=== PATIENT | female | born 1970 | race Caucasian/White ===

== ENCOUNTER → 2017-03-09 | Outpatient (CLI) | payer SELFPAY ==
[~2017-03-09] MED LIST: FISH5CAP PO; IBUP200C10 PO; SEA KELP PO; VITA10006 PO; [UNRECOGNIZED DRUG - OTHER] PO; percocet PO
[2017-03-09 09:30] LABS: MEAN CORPUSCULAR HEMOGLOBIN 32.2 pg (27.0-33.0); MEAN CORPUSCULAR HGB CONC 33.1 g/dl (32.0-36.5); MEAN CORPUSCULAR VOLUME 97.5 fl (80.0-96.0); RED CELL DISTRIBUTION WIDTH 12.7 % (11.5-14.5); WHITE BLOOD COUNT 6.2 10^3/uL (4.0-10.0)
[2017-03-09 09:41] LABS: ALBUMIN 3.4 GM/DL (3.2-5.2); ALBUMIN/GLOBULIN RATIO 0.97 (1.00-1.93); ALKALINE PHOSPHATASE 52 U/L (45-117); ALT/SGPT 37 U/L (12-78); AST/SGOT 17 U/L (15-37); BILIRUBIN,DIRECT 0.2 MG/DL (0.0-0.2); BILIRUBIN,TOTAL 0.5 MG/DL (0.2-1.0); TOTAL PROTEIN 6.9 GM/DL (6.4-8.2)
[2017-03-10 08:52] LABS: CARCINOEMBRYONIC ANTIGEN < 0.5 NG/ML (<2.5)
[2017-03-10 09:19] LABS: CA 125 18.2 U/ML (<30.2)
== END ==
LOC: M LAB 08:16
DX: M89.9 Disorder of bone, unspecified (principal)

== ENCOUNTER → 2018-09-25 | Outpatient (CLI) | payer SELFPAY ==
[~2018-09-25] MED LIST changes: +GASTROGRAFIN SOLUTION 30ML (Q9963) As Ordered ONE; -IBUP200C10 PO; +IBUP200C25 PO; +ISOVUE-370 76% 100ML VIAL (Q9967) As Ordered ONE; +PROHANCE 279.3MG/ML 15ML VIAL (A9576) As Ordered ONE
--- NOTE | 2018-09-25 15:11 | REP ---
HISTORY: Incisional pain. Possible incisional hernia. COMPARISON: 11/20/2013 CONTRAST: 100 mL Isovue-370 The lung bases are clear and unchanged. The liver, gallbladder, spleen, pancreas, adrenal glands and kidneys are within normal limits and essentially unchanged. There is no free fluid or free air in the abdomen. There is no evidence of an intraabdominal mass or adenopathy. The abdominal aorta and paraaortic regions are within normal limits, status quo. There is evidence of s defect in the right parasagittal abdominal wall consistent with the clinical suspicion of an incisional hernia. Within the hernial sac there is both small and large bowel. There is no abnormal bowel wall thickening. There is no evidence of intestinal obstruction or intestinal ischemia. CT PELVIS: There is no free fluid or free air. There is pelvic sidewall adenopathy which is essentially unchanged. The pelvic bowel loops are within normal limits and essentially unchanged. Bone window technique throughout the exam shows the osseous structures to be essentially unchanged. Heavy calcific changes are again seen involving the sacroiliac joints. IMPRESSION: Suspected right-sided incisional hernia as described above which needs to be correlated clinically. Persistent pelvic sidewall adenopathy. Other findings as described above. Electronically Signed by Mike Reaves DO 09/25/2018 04:06 P
== END ==
LOC: M RAD 12:40
PROVIDERS: ATTEND Nurse Practitioner Family
DX: R10.84 Generalized abdominal pain (principal)
CPT/HCPCS: 74177; A9576; Q9963; Q9967

== ENCOUNTER → 2019-03-01 | Outpatient (CLI) | payer SELFPAY ==
[~2019-03-01] MED LIST changes: -PROHANCE 279.3MG/ML 15ML VIAL (A9576) As Ordered ONE
--- NOTE | 2019-03-02 06:46 | REP ---
CT ABDOMEN AND PELVIS WITH IV AND ORAL CONTRAST: TECHNIQUE: Axial contrast enhanced images from the lung bases to the pubic symphysis using 100 mL Isovue 370 intravenous contrast material with multiplanar reformations. Visualized lung bases are clear. No mass is seen in the liver. The gallbladder is grossly unremarkable. The spleen is normal in size with no definite intrinsic abnormality. The adrenals, pancreas and kidneys are unremarkable. There is no abdominal aortic aneurysm. There is no adenopathy. There is no free air or free fluid. Comparing to the prior study 09/25/2018, the right lateral inferior abdominal wall incisional hernia is again seen. However, at that location there is now a moderately dilated small bowel loop within the hernia, lateral to the cecum. There are surrounding streaky inflammatory changes. There is mild thickening of that small bowel loop. There may be a tiny amount of fluid focally surrounding that moderately dilated loop. The findings suggest that there may be some degree of strangulation of that small bowel loop within the hernia sac. There may be a partial small bowel obstruction at that point. Ingested oral contrast is seen in the more proximal jejunum and ileum but has not reached that level of the small bowel. Mild diffuse air and feces is seen throughout the colon. The stomach is not dilated. There is mild dilatation of distal small bowel loops in the right lower quadrant. No pelvic mass is seen. The urinary bladder appears unremarkable. IMPRESSION: Inferolateral right abdominal wall hernia again seen, as noted on the prior CT of 09/25/2018. Cecum is seen in the hernia and there is small bowel located lateral to the cecum. There is a moderately dilated fluid filled small bowel loop at that location with wall thickening and mild surrounding fluid and streaky inflammation. These findings suggest possible strangulation of the small bowel in the hernia sac. There may be partial small bowel obstruction as well with adjacent mild small bowel dilatation. Electronically Signed by Alex Wade MD 03/03/2019 05:40 P
== END ==
LOC: M RAD 15:02
PROVIDERS: ATTEND Nurse Practitioner Family
DX: R19.00 Intra-abdominal and pelvic swelling, mass and lump, unspecified site (principal)

== ENCOUNTER 2019-03-05 21:14 | Inpatient (IN) | payer SELFPAY ==
[~2019-03-05] VITALS: Ht 167.6 cm; Wt 92.6 kg
[~2019-03-05 21:14] MED LIST changes: -GASTROGRAFIN SOLUTION 30ML (Q9963) As Ordered ONE; -ISOVUE-370 76% 100ML VIAL (Q9967) As Ordered ONE
[2019-03-05 22:07] LABS: BASO % 0.4 % (0.0-1.0); EOS # 0.1 10^3/uL (0.0-0.5); EOS % 0.9 % (0.0-3.0); HEMATOCRIT 37.8 % (36.0-47.0); HEMOGLOBIN 12.9 g/dl (12.0-15.5); LYMPH # 1.1 10^3/uL (1.5-5.0); LYMPH % 16.1 % (24.0-44.0); MEAN CORPUSCULAR HEMOGLOBIN 32.1 pg (27.0-33.0); MEAN CORPUSCULAR HGB CONC 34.1 g/dl (32.0-36.5); MONO # 0.4 10^3/uL (0.0-0.8); MONO % 6.3 % (0.0-5.0); NEUTROPHILS # 5.2 10^3/uL (1.5-8.5); NEUTROPHILS % 76.2 % (36.0-66.0); PLATELET COUNT, AUTOMATED 220 10^3/uL (150-450); RED BLOOD COUNT 4.02 10^6/uL (4.00-5.40); WHITE BLOOD COUNT 6.8 10^3/uL (4.0-10.0)
[2019-03-05 22:40] LABS: ALBUMIN 3.8 GM/DL (3.2-5.2); ALT/SGPT 26 U/L (12-78); BILIRUBIN,DIRECT 0.1 MG/DL (0.0-0.2); BILIRUBIN,TOTAL 0.5 MG/DL (0.2-1.0); BLOOD UREA NITROGEN 16 MG/DL (7-18); CALCIUM LEVEL 9.2 MG/DL (8.5-10.1); CARBON DIOXIDE LEVEL 27 MEQ/L (21-32); CHLORIDE LEVEL 106 MEQ/L (98-107); GLOMERULAR FILTRATION RATE > 60.0 (>51); GLUCOSE, FASTING 116 MG/DL (70-100); LIPASE 137 U/L (73-393); POTASSIUM SERUM 4.1 MEQ/L (3.5-5.1); SODIUM LEVEL 142 MEQ/L (136-145); TOTAL PROTEIN 7.5 GM/DL (6.4-8.2)
[2019-03-05] MEDS ORDERED: ISOVUE-370 76% 100ML VIAL (Q9967) As Ordered ONE (22:47)
[2019-03-06] VITALS (7 sets, daily range): BP systolic 111–135; BP diastolic 71–76; O2SAT 95–96
--- NOTE | 2019-03-06 00:17 | REPVR ---
PROCEDURE INFORMATION: Exam: CT Abdomen and Pelvis With Contrast Exam date and time: 03/05/2019 10:26 PM Clinical history: 48 years old, female; Abdominal pain; Generalized; Additional info: Hernia TECHNIQUE: Imaging protocol: Computed tomography of the abdomen and pelvis with intravenous contrast. Radiation optimization: All CT scans at this facility use at least one of these dose optimization techniques: automated exposure control; mA and/or kV adjustment per patient size (includes targeted exams where dose is matched to clinical indication); or iterative reconstruction. Contrast material: ISO; Contrast volume: 100 ml; Contrast route: AC; COMPARISON: CT ABD PELVIS WITH CONTRAST 03/01/2019 4:[address] ABD PELVIS WITH CONTRAST 09/25/2018 2:43:18 PM FINDINGS: Lungs: There is mild dependent atelectasis in both lower lobes. Heart: No cardiomegaly. No pericardial effusion. Liver: The attenuation of the liver is more than 40 Hounsfield units lower in attenuation compared to the spleen, which is compatible with fatty liver infiltration. No liver lesion is seen. The contour of the liver is smooth. The liver is enlarged and measures 20.5 cm in craniocaudal dimension at the level of the right midclavicular line. Gallbladder and bile ducts: No calcified gallstones are seen. No gallbladder wall thickening, pericholecystic fluid, or pericholecystic inflammatory changes are identified. No dilation of the intrahepatic or extrahepatic bile ducts is noted. Pancreas: Normal. No ductal dilation. Spleen: Normal. No splenomegaly. Incidental note is made of 2 small accessory spleens. Adrenals: Normal. No mass. Kidneys and ureters: The kidneys are normal in appearance. No renal lesion is identified. No calculi are seen in the kidneys or ureters. There is no hydronephrosis or hydroureter. There are no wedge-shaped areas of low attenuation in the kidneys to suggest pyelonephritis. There is no renal abscess or perinephric fluid collection. Stomach and bowel: There is colonic diverticulosis without evidence for diverticulitis. There is no evidence for a bowel obstruction, colitis, pneumatosis intestinalis, intussusception, volvulus, or perforated viscus. Appendix: Normal. No evidence for appendicitis. Intraperitoneal space: Unremarkable. No fluid collection. No free air. Retroperitoneal space: Unremarkable. No fluid collection. No mass. Vasculature: The abdominal aorta is patent, normal in caliber, and there is no dissection. The renal arteries, celiac artery, superior mesenteric artery, inferior mesenteric artery, iliac arteries, and common femoral arteries are patent. The portal veins, splenic vein, and renal veins are patent. Lymph nodes: Normal. No enlarged lymph nodes. Bladder: Unremarkable. No calculi or masses are noted in the bladder. Reproductive: The uterus is anterverted and unremarkable. The ovaries are unremarkable. Bones/joints: The imaged bony structures are intact. There is no suspicious osteolytic or osteoblastic lesion. Incidental note is made of bone islands in the L5 vertebral body and left iliac bone, which are unchanged compared to the prior CTs on 03/01/2019 and 09/25/2018. There is sclerosis on both sides of the sacroiliac joints that is similar in appearance compared to the prior CTs on 03/01/2019 and 09/25/2018, and may be secondary to sacroiliitis or chronic stress related changes. Soft tissues: There is a right inferolateral abdominal wall hernia that contains a 2 cm x 4.6 cm x 10.9 cm rim enhancing fluid collection, which is compatible with an abscess. No loose bowel are noted in the hernia sac. The size of the hernia is similar in appearance compared to the prior CT on 03/01/2019. IMPRESSION: 1. Right inferolateral abdominal wall hernia that contains a 2 cm x 4.6 cm x 10.9 cm abscess. 2. Colonic diverticulosis without evidence for diverticulitis. 3. Enlarged, fatty liver. Electronically signed by: Joao Watson On 03/06/2019 00:16:25 AM
[2019-03-06] MEDS ORDERED: ACETAMINOPHEN TAB 650MG DOSE (2X325MG) PO PRN ×2 (00:45→10:00)
[2019-03-06 02:42] LABS: APPEARANCE, URINE CLEAR (CLEAR); BACTERIA, URINE AUTO NEGATIVE (NEGATIVE); BILIRUBIN, URINE AUTO NEGATIVE (NEGATIVE); BLOOD, URINE BLOOD NEGATIVE (NEGATIVE); COLOR, URINE STRAW (YELLOW); GLUCOSE, URINE (UA) AUTO NEGATIVE (NEGATIVE); KETONE, URINE AUTO TRACE mg/dL (NEGATIVE); LEUKOCYTE ESTERASE, URINE AUTO NEGATIVE (NEGATIVE); NITRITE, URINE AUTO NEGATIVE (NEGATIVE); PROTEIN, URINE AUTO NEGATIVE (NEGATIVE); RBC, URINE AUTO 2 /HPF (0-3); SPECIFIC GRAVITY URINE AUTO 1.029 (1.002-1.035); SQUAMOUS EPITHELIAL CELL UR AU 0 /HPF (0-6); UROBILINOGEN, URINE AUTO 0.2 mg/dL (0.0-2.0); WBC, URINE AUTO 0 /HPF (0-3)
[2019-03-06] MEDS ORDERED: NS 1,000 ML IV SCH (03:00)
--- NOTE | 2019-03-06 03:45 | HPEPDOC ---
General Date of Admission Mar 05, 2019 at 21:15 Date of Service: Mar 06, 2019 Attending Physician: HENRY HARO MD Chief Complaint The patient is a 48-year-old female admitted with a reason for visit abdominal pain secondary to abscess on abdominal wall hernia. Source: Patient, Family, RN/MD Associated Symptoms: Headaches, Loss of appetite, Malaise, Other (abdominal pain and bloating, Indigestion) History of Present Illness 48-year-old Mu-[employer]m female arrives at [facility] ED with her and another male perioperative educator with complaints of headache, indigestion, bloating and abdominal pain that worsens with movement. She has significant medical history of GERD, headaches, abdominal hernia, iron deficiency anemia, and hypothyr oidism, not currently on medication. She denies fever, nausea, vomiting, diarrhea, chest pain, palpitations, and shortness of breath. Her blood pressure is elevated on arrival Systolic blood pressure 185/89 and 2114 and is now 123/59, at 2303 with IV fluid resuscitation.She had hernia repair surgery December 17, 2018, on Monday, FebruaryMar 01, she had CT Abdominal /Pelvis completed due to palpable mass in right lower quadrant of pelvis. However, she did not know this information as the clinic could not reach her. and today the [facility] department located her and informed her to come in for more testing for Small Bowel Obstruction. Normal saline, sepsis screen is negative. Afebrile, WBC 6.8. Patient's currently taking on medications vitamin C thousand milligrams daily, fish all 1200 mg capsule daily, ibuprofen 200 mg daily, Taraxacum Officinale (dandelion root) 600 mg 1 daily, Percocet 1-2 tabs by mouth daily every 4 hours as needed, and sea kelp 1 tablet by mouth daily. Due to patient's CT Scan results, current complaint, and recommendation that she be admitted by and undergo IR procedure to drain abdominal abscess. She will be admitted to observation unit under hospitalist services for ongoing evaluation. Home Medications No Active Prescriptions or Reported Meds Allergies Coded Allergies: No Known Allergies (Unverified , 11/06/13) Past Medical History Medical History See HPI Surgical History Cyst removed from lip, Hernia repair, and tumor removed Family History Significant Family History: No pertinent family hx Social History * Smoker: Denies Alcohol: Denies Drugs: denies Psychosocial History: No pertinent psych hx, Conrado SI and HI A-FIB/CHADSVASC A-FIB History Current/History of A-Fib/PAF?: No Review of Systems Constitutional: Reports: Fatigue Eyes: Reports: Pain ENT: Reports: Head Aches; Denies: Ear Pain, Dysphagia, Sinus Congestion, Post Nasal Drip, Sore Throat, Epistaxis, Other Symptoms Skin: Denies: Rash, Lesions, Jaundice, Bruising, Itching, Dry, Breakdown, Nail Changes, Other Pulmonary: Denies: Dyspnea, Cough, Pleuritic Chest Pain, Other Symptoms Cardiovascular: Denies: Chest Pain, Palpitations, Orthopnea, Paroxysmal Noc. Dyspnea, Edema, Lt Headedness, Other Symptoms Gastrointestinal: Reports: Abdominal Pain, Other Symptoms (indigestion off and on, abdominal bloating) Genitourinary: Denies: Dysuria, Frequency, Incontinence, Hematuria, Retention, Other Symptoms Hematologic: Denies: Bruising, Bleeding Excessively, Petecchia, Purpura, Enlarged Lymph Nodes, Other Hematologic Endocrine: Denies: Polydipsia, Polyphagia, Polyuria, Heat Intolerance, Cold Intolerance, Other Endocrine Sx Musculoskeletal: Denies: Neck Pain, Back Pain, Shoulder Pain, Arm Pain, Hand Pain, Leg Pain, Foot Pain, Joint Pain, Muscle Pain, Spasms, Other Symptoms Neurological: Denies: Weakness, Numbness, Incoordination, Change in speech, Confusion, Seizures, Other Symptoms Psych: Reports: Mood Normal; Denies: Anxiety, Depression, Memory Issues, Thoughts of Self Harm, Anger, Thoughts of Harming Other, Other Psych Physical Examination General Exam: Positive: Alert, Cooperative, Mild Distress Eye Exam: Positive: PERRLA, Conjunctiva & lids normal, EOMI ENT Exam: Positive: Atraumatic, Mucous membr. moist/pink, Pharynx Normal, Tongue Midline, Nares Patent, Ext Auditory Canal Nml, Pinna Normal Neck Exam: Positive: Supple, +2 carotid pulse wo bruit Chest Exam: Positive: Clear to auscultation, Normal air movement, Rales Heart Exam: Positive: Normal S1, Normal S2 Telemetry: Positive: No significant arrhythmia Abdomen Exam: Positive: Normal bowel sounds, Soft, Tenderness (Epigastric and RLLQ to palpation) Extremity Exam: Positive: Normal pulses Skin Exam: Positive: Nl turgor and temperature Neuro Exam: Positive: Normal Gait, Normal Speech, Strength at 5/5 X4 ext, Cranial Nerves 3-12 NL Psych Exam: Positive: Mental status NL, Mood NL, Oriented x 3 Vital Signs Vital Signs Date Time Temp Pulse Resp B/P (MAP) Pulse Ox O2 Delivery O2 Flow Rate FiO2 03/05/19 23:33 77 18 98 Room Air 03/05/19 23:03 123/59 (80) 03/05/19 21:14 97.0 Laboratory Data Labs 24H Laboratory Tests 2 03/05/19 21:59: Immature Granulocyte % (Auto) 0.1, White Blood Count 6.8, Red Blood Count 4.02, Hemoglobin 12.9, Hematocrit 37.8, Mean Corpuscular Volume 94.0, Mean Corpuscular Hemoglobin 32.1, Mean Corpuscular Hemoglobin Concent 34.1, Red Cell Distribution Width 12.5, Platelet Count 220, Neutrophils (%) (Auto) 76.2H, Lymphocytes (%) (Auto) 16.1L, Monocytes (%) (Auto) 6.3H, Eosinophils (%) (Auto) 0.9, Basophils (%) (Auto) 0.4, Neutrophils # (Auto) 5.2, Lymphocytes # (Auto) 1.1L, Monocytes # (Auto) 0.4, Eosinophils # (Auto) 0.1, Basophils # (Auto) 0.0, Nucleated Red Blood Cells % (auto) 0.0, Anion Gap 9, Glomerular Filtration Rate > 60.0, Calcium Level 9.2, Aspartate Amino Transf (AST/SGOT) 18, Alanine Aminotransferase (ALT/SGPT) 26, Alkaline Phosphatase 78, Total Bilirubin 0.5, Direct Bilirubin 0.1, Total Protein 7.5, Albumin 3.8, Albumin/Globulin Ratio 1.03, Lipase 137 CBC/BMP Laboratory Tests 03/05/19 21:59 Red Blood Count 4.02, Mean Corpuscular Volume 94.0, Mean Corpuscular Hemoglobin 32.1, Mean Corpuscular Hemoglobin Concent 34.1, Red Cell Distribution Width 12.5, Neutrophils (%) (Auto) 76.2 H, Lymphocytes (%) (Auto) 16.1 L, Monocytes (%) (Auto) 6.3 H, Eosinophils (%) (Auto) 0.9, Basophils (%) (Auto) 0.4, Neutrophils # (Auto) 5.2, Lymphocytes # (Auto) 1.1 L, Monocytes # (Auto) 0.4, Eosinophils # (Auto) 0.1, Basophils # (Auto) 0.0 Assessment/Plan 48-year-old Mu-[employer]m female arrives at [facility] ED with her and another male perioperative educator with complaints of headache, indigestion, bloating and abdominal pain that worsens with movement. She has significant medical history of GERD, headaches, abdominal hernia, iron deficiency anemia, and hypothyroidism, not currently on medication. She denies fever, nausea, vomiting, diarrhea, chest pain, palpitations, and shortness of breath. She is here for repeat CT Abdomen/Pelvis with Contrast to evaluate for Small Bowel Obstruction as she is having worsening abdominal pain with movement with abdominal distention. Abdominal pain secondary to Right Inferolateral Abdominal Wall Hernia w/Abscess-Acute Plan General Surgery Consult-Dr. Denson (ED physician Dr. Polanco spoke w concerning imaging). Informed Dr. Denson patient is NPO in OBS unit. NO ANTIBIOTICS PER Recommendations from Dr. Denson. IVF Normal Saline at 100 mls/hr Pulse oximetry on room air. Medication:Acetaminophen 650 mg by mouth every 6 hours as needed pain 1-3 or fever; Percocet 7.5/325 mg by mouth one every 4 hours as needed for pain 4-10. Initiate bowel program: MOM; Colace 100 mg po BID Zofran 4 mg IV every 6 hours as needed for nausea, vomiting, Check labs: CMP, hemoglobin A1c due to abnormal fasting glucose of the 116, Urinalysis reflex to culture if positive, Procalcitonin Elevated blood pressure without Diagnosis hypertensionacute EKG No telemetry at this time. Negative for cardiac history. Will monitor blood pressure every 4 hours Hold home med, ibuprofen 200 mg daily as this could be the cause of her high blood pressure Continue taking fish oil 1200 Milligrams Capsule Daily, Hold until after IR Is Completed Diverticulosis (Found on CT Abdomen/Pelvis)-Acute Food/Nutrition education Fatty Liver- (Found on CT Abdomen/Pelvis)- Acute Limit amount of Tylenol intake Iron Deficiency Anemia- Check labs: Fe, Iron uptake, Binding, CBC GERD-chronic Initiate Protonix DR 40 mg IV daily until IR procedure then 40 mg by mouth daily, Mylanta prn Hold home medication: Dandeloin Root (Taraxacum Officinale Exr & Andre 520 mg daily). Hypothyroidismchronic Check TSH, T4, free, fasting lipid panel Sea Kelp 1 tab daily (unknown strength) Prognosis: Good DVT Prophylaxis: SCD's bilateral LE alternating with COMFORT's. Hold Heparin 5000 IU''s SC TID until after IR drainage of Abdominal Wall Abscess Discharge: Pending Plan / VTE VTE Prophylaxis Ordered?: Yes VTE Exclusion Mechanical Proph: Jhonny Lower Ex DVT VTE Exclusion Pharmacological: Other (Abdominal Abscess drain in AM under IR) Plan IVF: Initiate Diet: Make NPO Activity: Bedrest Therapy: PT Medications: Change to IV Respiratory: Pulse Ox on Room Air Diagnostics: Check Labs, Repeat Labs in AM, CT, EKG Anticipated Discharge: Home KAYKAY SNEED Mar 06, 2019 00:54
[2019-03-06] MEDS: NS 1,000 ML IV SCH ×2 (04:03→14:06)
[2019-03-06] MEDS ORDERED: ONDANSETRON 4MG/2ML VIAL (J2405) IV PRN (05:45)
[2019-03-06] MEDS ORDERED: ONDANSETRON 4MG/2ML VIAL (J2405) IV SCH (06:00)
[2019-03-06 06:14] LABS: BASO % 0.4 % (0.0-1.0); EOS # 0.1 10^3/uL (0.0-0.5); EOS % 1.8 % (0.0-3.0); HEMATOCRIT 37.8 % (36.0-47.0); HEMOGLOBIN 12.7 g/dl (12.0-15.5); LYMPH # 1.2 10^3/uL (1.5-5.0); LYMPH % 22.6 % (24.0-44.0); MEAN CORPUSCULAR HEMOGLOBIN 31.9 pg (27.0-33.0); MEAN CORPUSCULAR HGB CONC 33.6 g/dl (32.0-36.5); MONO # 0.4 10^3/uL (0.0-0.8); MONO % 8.2 % (0.0-5.0); NEUTROPHILS # 3.4 10^3/uL (1.5-8.5); NEUTROPHILS % 66.8 % (36.0-66.0); PLATELET COUNT, AUTOMATED 220 10^3/uL (150-450); RED BLOOD COUNT 3.98 10^6/uL (4.00-5.40); WHITE BLOOD COUNT 5.1 10^3/uL (4.0-10.0)
[2019-03-06 06:25] LABS: INR 1.06; PROTHROMBIN TIME 13.5 SECONDS (11.8-14.0)
[2019-03-06 06:44] LABS: HEMOGLOBIN A1c 5.7 %
[2019-03-06 06:57] LABS: ALBUMIN 3.3 GM/DL (3.2-5.2); ALT/SGPT 23 U/L (12-78); BILIRUBIN,TOTAL 0.5 MG/DL (0.2-1.0); BLOOD UREA NITROGEN 11 MG/DL (7-18); CALCIUM LEVEL 8.7 MG/DL (8.5-10.1); CARBON DIOXIDE LEVEL 27 MEQ/L (21-32); CHLORIDE LEVEL 106 MEQ/L (98-107); CHOLESTEROL LEVEL 146 MG/DL (<200); CHOLESTEROL RISK RATIO 2.979 (<5); CREATININE FOR GFR 0.61 MG/DL (0.55-1.30); FREE T4 0.85 NG/DL (0.76-1.46); GLOMERULAR FILTRATION RATE > 60.0 (>51); GLUCOSE, FASTING 86 MG/DL (70-100); HDL CHOLESTEROL 49 MG/DL (>40); LDL CHOLESTEROL 79 MG/DL (<100); NON-HDL-C 97 MG/DL; POTASSIUM SERUM 3.7 MEQ/L (3.5-5.1); SODIUM LEVEL 141 MEQ/L (136-145); TOTAL PROTEIN 7.1 GM/DL (6.4-8.2); TRIGLYCERIDES LEVEL 91 MG/DL (<150)
[2019-03-06] MEDS: PIPERACILLIN/TAZOBACTAM SOD 3.375 GM in D5W MINI-BAG PLUS 50 ML IV SCH ×2 (08:53→14:06)
[2019-03-06] MEDS: DOCUSATE SODIUM 100 MG CAP PO SCH ×2 (08:54→20:42)
[2019-03-06] MEDS ORDERED: MAALOX 30 ML SUSP *UDC PO PRN ×2 (09:00→11:00)
[2019-03-06] MEDS ORDERED: MOM 30ML SUSPENSION UDC PO PRN ×2 (09:00→10:00)
[2019-03-06] MEDS ORDERED: DOCUSATE SODIUM 100 MG CAP PO SCH (09:00)
--- NOTE | 2019-03-06 12:14 | IPNPDOC ---
Text Note Date of Service The patient was seen on 03/06/19. NOTE Subjective: Patient is a 48-year-old Nathan female with a PMHx of GERD, headaches, abdominal hernia, iron deficiency anemia, and hypothyroidism who presented to [facility] ER after she was brought in for an abnormal CT scan. Patient had a CT scan completed as an outpatient, results suggested possibility of abscess collection. Primary care provider had difficulty contacting patient and had sent the police car out to evaluate. Patient was brought into the emergency room where she received subsequent imaging. . She was then admitted to the hospitalist service for further evaluation and treatment. Surgery was called on consultation. Patient was seen and examined at the bedside. Patient reports that she is not experiencing abdominal pain, no nausea, vomiting or discomfort with urination. She reports normal bowel movements. Objective: Vitals (See below) General: Lying in bed, no acute distress, comfortable, AAOx3 HEENT: NC, AT CVS: RRR, +S1S2 Lungs: Fair air entry b/l, -w/r/r Abdomen: Soft, ND, NT, palpable defined mass can be felt in the right lower quadrant Extremities: - Edema, - Calf tenderness Assessment and plan: Abdominal pain at RLQ - possibly 2/2 mass, possibly 2/2 chronic seroma, possibly 2/2 abscess, possibly 2/2 incarcerated hernia - Clinically, patient reports that she does not experience any abdominal pain. Denies any nausea, vomiting - Patient remains hemodynamically stable and afebrile - No leukocytosis - CT abdomen / pelvis 03/05: 1. Right inferolateral abdominal wall hernia that contains a 2 cm x 4.6 cm x 10.9 cm abscess. 2. Colonic diverticulosis without evidence for diverticulitis. 3. Enlarged, fatty liver. - c/w IV fluid hydration - Will start Zosyn for intra-abdominal coverage of infection - Discussed with Dr. Denson, General surgery, and Dr. Wade, Interventional radiology - patient will be evaluated by general surgery; IR is currently being deferred because of the possibility of this being of bowel loop Headaches - c/w Tylenol PRN Iron deficiency anemia - No evidence of anemia Hypothyroidism - TSH elevated; Free T4 normal - Will continue with current outpatient regimen; will differ to outpatient provider - Patient currently does not take any medications DVT prophylaxis - c/w TEDs/Sequentials VS,Fishbone, I+O VS, Fishbone, I+O Laboratory Tests 03/05/19 21:59 Red Blood Count 4.02, Mean Corpuscular Volume 94.0, Mean Corpuscular Hemoglobin 32.1, Mean Corpuscular Hemoglobin Concent 34.1, Red Cell Distribution Width 12.5, Neutrophils (%) (Auto) 76.2 H, Lymphocytes (%) (Auto) 16.1 L, Monocytes (% ) (Auto) 6.3 H, Eosinophils (%) (Auto) 0.9, Basophils (%) (Auto) 0.4, Neutrophils # (Auto) 5.2, Lymphocytes # (Auto) 1.1 L, Monocytes # (Auto) 0.4, Eosinophils # (Auto) 0.1, Basophils # (Auto) 0.0 03/06/19 05:32 Red Blood Count 3.98 L, Mean Corpuscular Volume 95.0, Mean Corpuscular Hemoglobin 31.9, Mean Corpuscular Hemoglobin Concent 33.6, Red Cell Distribution Width 12.5, Neutrophils (%) (Auto) 66.8 H, Lymphocytes (%) (Auto) 22.6 L, Monocytes (%) (Auto) 8.2 H, Eosinophils (%) (Auto) 1.8, Basophils (%) (Auto) 0.4, Neutrophils # (Auto) 3.4, Lymphocytes # (Auto) 1.2 L, Monocytes # (Auto) 0.4, Eosinophils # (Auto) 0.1, Basophils # (Auto) 0.0, Calcium Level 8.7, Aspartate Amino Transf (AST/SGOT) 14, Alanine Aminotransferase (ALT/SGPT) 23, Alkaline Phosphatase 69, Total Bilirubin 0.5, Triglycerides Level 91, LDL Cholesterol 79, Total Protein 7.1, Albumin 3.3 Vital Signs Date Time Temp Pulse Resp B/P (MAP) Pulse Ox O2 Delivery O2 Flow Rate FiO2 03/06/19 09:00 97.9 72 16 128/74 (92) 97 03/06/19 03:58 Room Air I&O- Last 24 Hours up to 6 AM 03/06/19 06:00 Intake Total 0 ml Output Total 400 ml Balance -400 ml BERNADETTE JOSE MD Mar 06, 2019 12:14
[2019-03-07] MEDS: NS 1,000 ML IV SCH ×2 (01:00→10:13)
[2019-03-07 06:00] VITALS: BP 126/71
[2019-03-07 06:40] LABS: HEMOGLOBIN 13.4 g/dl (12.0-15.5); MEAN CORPUSCULAR HGB CONC 33.5 g/dl (32.0-36.5); MEAN CORPUSCULAR VOLUME 95.5 fl (80.0-96.0); PLATELET COUNT, AUTOMATED 216 10^3/uL (150-450); RED BLOOD COUNT 4.19 10^6/uL (4.00-5.40); WHITE BLOOD COUNT 5.1 10^3/uL (4.0-10.0)
[2019-03-07 07:04] LABS: ALBUMIN 3.4 GM/DL (3.2-5.2); ALT/SGPT 25 U/L (12-78); BILIRUBIN,TOTAL 0.6 MG/DL (0.2-1.0); BLOOD UREA NITROGEN 9 MG/DL (7-18); CALCIUM LEVEL 8.9 MG/DL (8.5-10.1); CARBON DIOXIDE LEVEL 28 MEQ/L (21-32); CHLORIDE LEVEL 109 MEQ/L (98-107); CREATININE FOR GFR 0.71 MG/DL (0.55-1.30); GLOMERULAR FILTRATION RATE > 60.0 (>51); GLUCOSE, FASTING 98 MG/DL (70-100); POTASSIUM SERUM 3.9 MEQ/L (3.5-5.1); SODIUM LEVEL 141 MEQ/L (136-145); TOTAL PROTEIN 7.2 GM/DL (6.4-8.2)
--- NOTE | 2019-03-07 07:51 | CR.PDOC ---
General Surgery Consultation Date of Consultation 03/06/19 History and Physical CONSULT REPORT FOR: Igor Garza MD (hospitalist service) REASON FOR CONSULTATION: right lower quadrant bulging ?hernia, recurrence or abscess HISTORY OF PRESENT ILLNESS: PAST MEDICAL HISTORY: 1. . PAST SURGICAL HISTORY: INCLUDES: 1. . PREVIOUS ANESTHESIA REACTIONS: ALLERGIES: Please see below. FAMILY HISTORY: . HOME MEDICATIONS: Please see below. REVIEW OF SYSTEMS: GENERAL: [Denies chills, reports weight gain, reports feeling febrile yesterday]. HEENT: [Denies blurred vision and double vision. Denies ear symptoms. Denies hoarseness]. NECK: Denies any neck pain]. CARDIOVASCULAR: [Denies chest pain and palpitations]. MUSCULOSKELETAL: [Denies arthralgias, back pain and thrombophlebitis]. SKIN: [Denies rash]. NEUROLOGIC: [Denies headache, stroke and transient ischemic attack]. PSYCHIATRIC: [Denies anxiety and depression]. ENDOCRINE: [Denies thyroid disease]. HEMATOLOGY/ONCOLOGY: [Denies bleeding or clotting disorder]. HEART: [Denies any chest pains, palpitations, paroxysmal dyspnea, orthopnea]. PULMONARY: [Denies chronic cough, dyspnea and wheezing]. GASTROINTESTINAL: [Denies rectal bleeding, family history of colon cancer, constipation, diarrhea, dysphagia, heartburn and jaundice]. GENITOURINARY: [Denies dysuria, frequency, hematuria and nocturia]. ENDOCRINE: [Denies polydipsia, polyphagia, polyuria, heat or cold intolerance]. INFECTIOUS: [Denies any recent upper respiratory tract infection, UTI, need for use of antibiotics]. NUTRITION: [Reports good appetite]. PHYSICAL EXAMINATION: VITALS SIGNS: Please see below. GENERAL APPEARANCE:[Patient seen, laying in bed, awake, alert, and oriented. Comfortable, in no acute distress]. SKIN: [Warm and moist]. HEENT: [Normocephalic, atraumatic. [place] palpebral conjunctiva, anicteric sclerae. Lips and mucosa appear moist]. NECK: [Supple, no thyromegaly. No obvious jugular venous distention]. LUNGS: [Clear to auscultation bilaterally. No wheezing appreciated]. HEART: [No chest wall abnormalities. Regular rate and rhythm with no murmurs appreciated]. ABDOMEN: Abdomen is , soft, . [No hepatosplenomegaly. No umbilical or groin herniations, nondistended. No noticeable rebound or guarding. No grimacing with palpation. No rebound tenderness. No masses appreciated]. EXTREMITIES: [Extremities have no deformities. No edema identified] ANCILLARIES: . LABORATORY DATA: Please see below. 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 I reassured them from the CT that was done that this does not seem to be so. She had a laparoscopic repair of said hernia in December 2018 at [facility] with a large piece of mesh. I presumed was placed as Intraperitoneal Onlay Placement (IPOM) I do not have available the operative reports at this time. I suspect the fluid collection seen on CT is a postoperative seroma. This was called as possible abscess by the online radiologist who read the CT last night. She is not reporting any fevers, chills, systemic signs of infection or inflammation. The area does not have any localized signs of inflammation or infection and I could manipulate the fluctuant bulging without any undue discomfort from the patient. I spoke to Dr. Wade regarding the 2 different CTs done 4 days apart and the different interpretations on the CT images. He was not aware that the patient had a prior hernia repair in between the images in september and mar 01 that he compared and the bowel contrast did not illuminate the portion of the bowel close to the hernia so he concluded that the fluid collection in the prior hernia most likely is a strangulated piece of bowel. After onferring with him, we have decided that an US maybe able to distinguish plain fluid and bowel so we will do that. If it is, I recommend having the seroma aspirated (no drains place). If this is not purulent looking, then she can go home and follow up with her surgeon in [place] for further management of this. Vital Signs Vital Signs Date Time Temp Pulse Resp B/P (MAP) Pulse Ox O2 Delivery O2 Flow Rate FiO2 03/07/19 06:00 97.0 62 18 126/71 (89) 100 03/06/19 16:31 Room Air I&Os I&O- Last 24 Hours up to 6 AM 03/07/19 06:00 Intake Total 2650 ml Output Total 500 ml Balance 2150 ml Laboratory Data Labs 24H Laboratory Tests 2 03/07/19 06:16: Nucleated Red Blood Cells % (auto) 0.0, Anion Gap 4L, Glomerular Filtration Rate > 60.0, Blood Urea Nitrogen 9, Creatinine 0.71, Sodium Level 141, Potassium Level 3.9, Chloride Level 109H, Carbon Dioxide Level 28, Calcium Level 8.9, Aspartate Amino Transf (AST/SGOT) 14, Alanine Aminotransferase (ALT/SGPT) 25, Alkaline Phosphatase 74, Total Bilirubin 0.6, Total Protein 7.2, Albumin 3.4, Albumin/Globulin Ratio 0.89L CBC/BMP Laboratory Tests 03/07/19 06:16 Red Blood Count 4.19, Mean Corpuscular Volume 95.5, Mean Corpuscular Hemoglobin 32.0, Mean Corpuscular Hemoglobin Concent 33.5, Red Cell Distribution Width 12.7, Calcium Level 8.9, Aspartate Amino Transf (AST/SGOT) 14, Alanine Aminotra nsferase (ALT/SGPT) 25, Alkaline Phosphatase 74, Total Bilirubin 0.6, Total Protein 7.2, Albumin 3.4 Microbiology Microbiology 03/06/19 Urine Culture, Received Pending Home Medications No Active Prescriptions or Reported Meds Allergies Coded Allergies: No Known Allergies (Unverified , 11/06/13) PATRICIA SHARMA MD Mar 07, 2019 07:51
[2019-03-07 07:57] VITALS: BP 110/68
[2019-03-07] MEDS: DOCUSATE SODIUM 100 MG CAP PO SCH (08:19)
--- NOTE | 2019-03-07 10:25 | IPNPDOC ---
Text Note Date of Service The patient was seen on 03/07/19. 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 Patient had a CT scan completed as an outpatient, results suggested possibility of abscess collection. Primary care provider had difficulty contacting patient and had sent the police car out to evaluate. Patient was brought into the emergency room where she received subsequent imaging. . She was then admitted to the hospitalist service for further evaluation and treatment. Surgery was called on consultation. Patient was seen and examined at the bedside. Currently, patient reports that she has had no events overnight. She denies nausea, vomiting, abdominal pain, constipation, diarrhea, or urinary discomfort. She denies chest pain, short of breath or palpitations. Objective: Vitals (See below) General: Lying in bed, no acute distress, comfortable, AAOx3 HEENT: NC, AT CVS: RRR, +S1S2 Lungs: Fair air entry b/l, no appreciable wheezing, rhonchi or rales Abdomen: Abdomen remains soft, without any distention, no significant tenderness right lower quadrant has palpable mass - non-tender Extremities: Lower extremities are free of any edema, - Calf tenderness Assessment and plan: Abdominal pain at RLQ - possibly 2/2 mass, possibly 2/2 chronic seroma, possibly 2/2 abscess, unlikely 2/2 incarcerated hernia - Clinically, patient reports that she does not experience any abdominal pain, and denies any nausea/vomiting - Patient remains hemodynamically stable and afebrile - No leukocytosis - CT abdomen / pelvis 03/05: 1. Right inferolateral abdominal wall hernia that contains a 2 cm x 4.6 cm x 10.9 cm abscess. 2. Colonic diverticulosis without evidence for diverticulitis. 3. Enlarged, fatty liver. - c/w IV fluid hydration - c/w Zosyn for intra-abdominal coverage of infection - Will get ultrasound evaluation to confirm possible seroma, followed by ultrasound-guided drainage - Dr. Denson on consultation; discussed case - likely seroma given repair, abdominal wall hernia Headaches - c/w Tylenol PRN Iron deficiency anemia - No evidence of anemia Hypothyroidism - TSH elevated; Free T4 normal - Will continue with current outpatient regimen; will differ to outpatient provider - Patient currently does not take any medications DVT prophylaxis - c/w TEDs/Sequentials VS,Fishbone, I+O VS, Fishbone, I+O Laboratory Tests 03/07/19 06:16 Red Blood Count 4.19, Mean Corpuscular Volume 95.5, Mean Corpuscular Hemoglobin 32.0, Mean Corpuscular Hemoglobin Concent 33.5, Red Cell Distribution Width 12.7, Calcium Level 8.9, Aspartate Amino Transf (AST/SGOT) 14, Alanine Aminotransferase (ALT/SGPT) 25, Alkaline Phosphatase 74, Total Bilirubin 0.6, Total Protein 7.2, Albumin 3.4 Vital Signs Date Time Temp Pulse Resp B/P (MAP) Pulse Ox O2 Delivery O2 Flow Rate FiO2 03/07/19 07:57 97.1 68 20 110/68 (82) 98 03/06/19 16:31 Room Air I&O- Last 24 Hours up to 6 AM 03/07/19 06:00 Intake Total 2650 ml Output Total 500 ml Balance 2150 ml BERNADETTE JOSE MD Mar 07, 2019 10:25
[2019-03-07 11:45] VITALS: O2SAT 96
[2019-03-07 15:00] VITALS: BP 134/73
[2019-03-07] MEDS ORDERED: LIDOCAINE 1% MDV 20ML VIAL As Ordered ONE (15:00)
--- NOTE | 2019-03-07 17:39 | REP ---
ULTRASOUND RIGHT FLANK SOFT TISSUES: Real-time sonographic evaluation of right flank soft tissues performed at the site of a palpable lump. Correlation is made with prior CT examinations of 03/01/2019 and 03/05/2019. At the site of the palpable lump, the patient has had recent hernia repair. Mesh material is seen in this portion of the abdominal wall of the right lower quadrant from the hernia repair. Superficial to the mesh there is a complex fluid collection with no internal abdominal contents or bowel. The complex fluid collection measures 11.0 x 3.5 x 7.7 cm. This may represent a complex seroma. Ultrasound guided drainage has been requested and will be performed. Electronically Signed by Alex Wade MD 03/08/2019 04:34 P
--- NOTE | 2019-03-07 17:45 | DS.PDOC ---
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 Patient had a CT scan completed as an outpatient, results suggested possibility of abscess collection. Primary care provider had difficulty contacting patient and had sent the police car out to evaluate. Patient was brought into the emergency room where she received subsequent imaging. She was then admitted to the hospitalist service for further evaluation and treatment. Surgery was called on consultation. HOSPITAL COURSE: Abdominal pain at RLQ - possibly 2/2 mass, possibly 2/2 chronic seroma, possibly 2/2 abscess, unlikely 2/2 incarcerated hernia - Clinically, patient reports that she does not experience any abdominal pain, and denies any nausea/vomiting - Patient remains hemodynamically stable and afebrile - No leukocytosis - CT abdomen / pelvis 03/05: 1. Right inferolateral abdominal wall hernia that contains a 2 cm x 4.6 cm x 10.9 cm abscess. 2. Colonic diverticulosis without evidence for diverticulitis. 3. Enlarged, fatty liver. - c/w IV fluid hydration - c/w Zosyn for intra-abdominal coverage of infection - Patient had ultrasound-guided drainage of her right lower quadrant mass/fluid collection; results were sent for culture and cytology - Dr. Denson on consultation; discussed case - likely seroma given repair, abdominal wall hernia - Will have outpatient follow-up with Dr. Adalberto Hernandes/ Surgeon in [place]; advised the importance of immediate follow-up with surgeon for results of cytology - patient has verbalized understanding Headaches - c/w Tylenol PRN Iron deficiency anemia - No evidence of anemia Hypothyroidism - TSH elevated; Free T4 normal - Will continue with current outpatient regimen; will differ to outpatient provider - Patient currently does not take any medications DVT prophylaxis - c/w TEDs/Sequentials DISCHARGE MEDICATIONS: Please see below. ALLERGIES: Please see below. PHYSICAL EXAMINATION ON DISCHARGE: Vitals (See below) General: Lying in bed, no acute distress, comfortable, AAOx3 HEENT: NC, AT CVS: RRR, +S1S2 Lungs: Fair air entry b/l, auscultations free of rhonchi, rales or wheezing Abdomen: Abdomen remains soft, without any distention, no significant tenderness right lower quadrant has palpable mass - non-tender, dressing in place Extremities: Lower extremities are free of any edema, - Calf tenderness LABORATORY DATA: Please see below. ACTIVITY: [As tolerated]. DISCHARGE PLAN: Follow-up with Dr. Denson / Surgeon in [place] and PCP within 5 days Remain compliant with treatment plan and medications Return to the ER if you experience any problems DISPOSITION: Home DISCHARGE CONDITION: [Stable]. TIME SPENT ON DISCHARGE: 37 minutes Vital Signs/I&Os Vital Signs Date Time Temp Pulse Resp B/P (MAP) Pulse Ox O2 Delivery O2 Flow Rate FiO2 03/07/19 15:00 98.0 82 16 100 03/07/19 11:45 Room Air 03/07/19 07:57 110/68 (82) I&O- Last 24 Hours up to 6 AM 03/07/19 05:59 Intake Total 1900 ml Output Total 500 ml Balance 1400 ml Laboratory Data Labs 24H Laboratory Tests 2 03/07/19 06:16: Nucleated Red Blood Cells % (auto) 0.0, Anion Gap 4L, Glomerular Filtration Rate > 60.0, Blood Urea Nitrogen 9, Creatinine 0.71, Sodium Level 141, Potassium Level 3.9, Chloride Level 109H, Carbon Dioxide Level 28, Calcium Level 8.9, Aspartate Amino Transf (AST/SGOT) 14, Alanine Aminotransferase (ALT/SGPT) 25, Alkaline Phosphatase 74, Total Bilirubin 0.6, Total Protein 7.2, Albumin 3.4, Albumin/Globulin Ratio 0.89L, Procalcitonin <0.02 CBC/BMP Laboratory Tests 03/07/19 06:16 Red Blood Count 4.19, Mean Corpuscular Volume 95.5, Mean Corpuscular Hemoglobin 32.0, Mean Corpuscular Hemoglobin Concent 33.5, Red Cell Distribution Width 12.7, Calcium Level 8.9, Aspartate Amino Transf (AST/SGOT) 14, Alanine Aminotransferase (ALT/SGPT) 25, Alkaline Phosphatase 74, Total Bilirubin 0.6, Total Protein 7.2, Albumin 3.4 Microbiology Microbiology 03/07/19 Gram Stain, Received Pending 03/07/19 Abscess Culture, Received Pending 03/07/19 Anaerobic Culture, Received Pending 03/06/19 Urine Culture - Final, Complete Discharge Medications No Active Prescriptions or Reported Meds Allergies Coded Allergies: No Known Allergies (Unverified , 11/06/13) BERNADETTE JOSE MD Mar 07, 2019 17:45
--- NOTE | 2019-03-08 16:04 | REP ---
Ultrasound-guided seroma drainage The procedure was performed by LORETTA Jasso, under the direct supervision of Dr. Wade. The risks and benefits of the procedure were explained to the patient and informed consent was obtained both verbally and written. Directly prior to the start of the procedure, a formal timeout was completed in the procedure room. Under ultrasound guidance, the seroma in the right lower quadrant was localized and skin was marked. The skin was then prepped and draped in a sterile fashion. 4 ml of 1% lidocaine was used as a local anesthetic. Using ultrasound guidance, a 5-[place] skater catheter was inserted using trocar technique. 20 mL of dark yellow colored fluid was withdrawn and to the laboratory for further analysis. The patient tolerated the procedure well and there were no immediate complications. After the appropriate monitored convalescence the patient was discharged from the department. Reviewed by LORETTA Marshall 03/07/2019 05:14 P Electronically Signed by Alex Wade MD 03/08/2019 03:55 P
== END 2019-03-07 19:20 | disposition home or self-care (01) | DRG 251 ==
LOC: M ED 21:14 → M ED INP 21:15 → M MSPAV 03-06 02:09 → OBSVTOIN 03-06 07:18
PROVIDERS: ADMIT Internal Medicine; ATTEND Internal Medicine
PROC: 0W9F3ZZ Drainage of Abdominal Wall, Percutaneous Approach (ICD-10-PCS; principal; 2019-03-07 15:00)
DX: R10.31 Right lower quadrant pain (principal); K65.1 Peritoneal abscess; R51 Headache; D50.9 Iron deficiency anemia, unspecified; E03.9 Hypothyroidism, unspecified; K21.9 Gastro-esophageal reflux disease without esophagitis; K57.30 Diverticulosis of large intestine without perforation or abscess without bleeding; K46.9 Unspecified abdominal hernia without obstruction or gangrene; R19.03 Right lower quadrant abdominal swelling, mass and lump

== ENCOUNTER → 2019-07-10 | Outpatient (CLI) | payer SELFPAY ==
[2019-07-10 14:50] LABS: BASO % 0.3 % (0.0-1.0); EOS # 0.2 10^3/uL (0.0-0.5); EOS % 2.6 % (0.0-3.0); HEMATOCRIT 39.9 % (36.0-47.0); LYMPH # 1.3 10^3/uL (1.5-5.0); LYMPH % 20.7 % (24.0-44.0); MEAN CORPUSCULAR HEMOGLOBIN 31.2 pg (27.0-33.0); MEAN CORPUSCULAR HGB CONC 32.6 g/dl (32.0-36.5); MEAN CORPUSCULAR VOLUME 95.7 fl (80.0-96.0); MONO # 0.4 10^3/uL (0.0-0.8); MONO % 6.4 % (0.0-5.0); NEUTROPHILS # 4.5 10^3/uL (1.5-8.5); NEUTROPHILS % 69.7 % (36.0-66.0); PLATELET COUNT, AUTOMATED 184 10^3/uL (150-450); RED BLOOD COUNT 4.17 10^6/uL (4.00-5.40); WHITE BLOOD COUNT 6.4 10^3/uL (4.0-10.0)
[2019-07-10 15:15] LABS: ERYTHROCYTE SEDIMENTATION RATE 11 mm/hr (0-30)
[2019-07-10 15:24] LABS: ALBUMIN 3.6 GM/DL (3.2-5.2); ALT/SGPT 22 U/L (12-78); BILIRUBIN,TOTAL 0.4 MG/DL (0.2-1.0); BLOOD UREA NITROGEN 20 MG/DL (7-18); CALCIUM LEVEL 9.1 MG/DL (8.5-10.1); CARBON DIOXIDE LEVEL 29 MEQ/L (21-32); CHLORIDE LEVEL 106 MEQ/L (98-107); CREATININE FOR GFR 0.85 MG/DL (0.55-1.30); GLOMERULAR FILTRATION RATE > 60.0 (>51); GLUCOSE, FASTING 164 MG/DL (70-100); POTASSIUM SERUM 3.9 MEQ/L (3.5-5.1); SODIUM LEVEL 140 MEQ/L (136-145); TOTAL PROTEIN 7.2 GM/DL (6.4-8.2)
== END ==
LOC: M LAB 14:16
PROVIDERS: ATTEND Internal Medicine
DX: R10.30 Lower abdominal pain, unspecified (principal)